=== PATIENT | female | born 1945 | race Caucasian/White ===

== ENCOUNTER 2016-07-28 01:02 | Inpatient (IN) | payer MEDICARE, MEDICAID ==
[2016-07-28 02:00] VITALS: BP 154/63
[2016-07-28] MEDS: Sodium Chloride 0.9% 1,000 ML IV SCH ×2 (02:47→21:49)
[2016-07-28] MEDS: Albuterol Nebulizer 2.5mg/3mL HHN SCH ×4 (03:00→19:42)
[2016-07-28] MEDS ORDERED: Pneumococcal Vaccine 0.5 mL Vial IM ONE (05:33)
[2016-07-28 05:36] LABS: % LYMPHOCYTES 10.6 % (20.0-50.0); % NEUTROPHILS 77.4 % (40.0-80.0); HEMATOCRIT 30.9 % (35.0-45.0); HEMOGLOBIN 10.7 gm/dL (11.7-16.1); MEAN CELL VOLUME 84.1 fl (81-100); MEAN CORPUSCULAR HEMOGLOBIN 29.2 pg (27.0-31.0); MEAN CORPUSCULAR HGB CONC 34.7 pg (28.0-36.0); MEAN PLATELET VOLUME 7.4 fl; NEUTROPHILE ABSOLUTE 7.6 Th/cmm (1.8-8.0); PLATELET COUNT 269 Th/cmm (150-400); RED BLOOD COUNT 3.68 Mil/cmm (3.80-5.20); RED CELL DISTRIBUTION WIDTH 12.4 % (11.5-20.0); WHITE BLOOD COUNT 9.8 Th/cmm (4.8-10.8)
[2016-07-28 06:10] LABS: ALB/GLOB RATIO 0.9 (1.0-1.8); ALKALINE PHOSPHATASE 137 U/L (34-104); ANION GAP 9.6 (7.0-16.0); BILIRUBIN,TOTAL 0.7 mg/dL (0.3-1.0); BUN - UREA NITROGEN 29 mg/dL (7-25); BUN/CREATININE RATIO 32.2; CALCIUM SERUM 8.1 mg/dL (8.6-10.3); CARBON DIOXIDE 28.2 mEq/L (21.0-31.0); CHLORIDE 102 mEq/L (98-107); CREATININE - SERUM 0.9 mg/dL (0.6-1.2); GLUCOSE 191 mg/dL (70-105); SGOT 47 U/L (13-39); SGPT/ALT 58 U/L (7-52); SODIUM SERUM 137 mEq/L (136-145)
[2016-07-28 06:15] LABS: POTASSIUM SERUM 2.8 mEq/L (3.5-5.1)
[2016-07-28] MEDS ORDERED: VITAMIN D3 PO SCH (09:00)
[2016-07-28] MEDS ORDERED: CALCIUM CARBONATE PO SCH (09:00)
[2016-07-28] MEDS ORDERED: [UNRECOGNIZED DRUG - OTHER] PO SCH (09:00)
--- NOTE | 2016-07-28 09:21 | Diagnostic Imaging Report ---
Portable chest x-ray HISTORY: Shortness of breath The heart size appears somewhat generous. No focal pulmonary processes. Atherosclerotic calcification seen in the aorta. IMPRESSION: 1. No acute focal pulmonary processes
[2016-07-28] MEDS: cefTRIAXone 1 GM in Sodium Chloride 0.9% 50 ML IV SCH (09:49)
[2016-07-28] MEDS: Potassium Chloride 40 MEQ, Lidocaine 1% 20mL Vial 25 MG in Sodium Chloride 0.9% 250 ML IV ONE (10:15)
[2016-07-28] MEDS: Promethazine DM 6.25/15mg-5mL 5 ML SYR PO SCH ×4 (12:02→23:41)
--- NOTE | 2016-07-28 15:21 | History & Physical ---
CHIEF COMPLAINT: Shortness of breath. HISTORY OF PRESENT ILLNESS: This is the case of 71-year-old female who went to [facility] ER secondary to cough and fever. She referred that for a few days, she is having fever and cough, reason why she went to Emergency Room for evaluation and treatment. The patient was at the Emergency Room, diagnosis of pneumonia was done and the patient was transferred to this hospital to continue treatment. PAST MEDICAL HISTORY: The patient has past medical history of hypertension, high cholesterol, status post breast cancer. The patient received radiotherapy. SOCIAL HISTORY: The patient lives at home with family. She denies smoking, drinking or use of illegal drugs. PAST SURGICAL HISTORY: The patient had breast surgery 20 years ago. MEDICATIONS: Reviewed. ALLERGIES: No known allergies. REVIEW OF SYSTEMS: LUNGS: The patient referred shortness of breath, cough and fever. HEART: Unremarkable. ABDOMEN: Unremarkable. EXTREMITIES: Unremarkable. PHYSICAL EXAMINATION: GENERAL: Does reveal a fairly nourished and developed female, awake, alert and complaining of chest pain secondary to cough. LUNGS; ____ respiration, bilateral secretions with occasional wheezing. HEART: Regular rhythm. ABDOMEN: Soft, nontender. Bowel sounds present. EXTREMITIES: No edema. NEUROLOGICAL: The patient is awake, alert. Nerves 2-12 grossly intact. IMPRESSION: 1. Pneumonia. 2. Hypertension. 3. Dyslipidemia. 4. Status post breast cancer. PLAN: 1. The patient will be admitted in medical surgical floor. 2. Ceftriaxone IV. 3. treatment. 4. Continue on home medications. 5. Diet, low in sodium. 6. CBC and CMP at a.m. JOB# [id number]
[2016-07-28] MEDS: Budesonide 0.5 Mg/2 mL Ud HHN SCH (19:42)
--- NOTE | 2016-07-28 21:10 | Admit Criteria Form ---
Admit Criteria Forms - Admit Criteria Diagnosis: PNEUMONIA, COMMUNITY ACQUIRED Clinical Indications for Admission to Inpatient Care ( Place 'X' for any and all applicable criteria): Admission is indicated for ANY ONE of the following (1)(2)(3): [ ]I. Hypoxemia indicated by ANY ONE of the following: [ ]a) Oxygen saturation less than 90% while breathing room air [ ]b) PO2 less than 60 mm Hg (8.0 kPa) while breathing room air [ ]c) Chronic lung disease with significant deterioration from baseline oxygenation [ ]II. Appropriate diagnostic testing and treatment unavailable in outpatient or recovery facility (eg,testing or infection control measures unavailable(10) [ ]III. Moderate-risk or high-risk category patients (Pneumonia Severity Index (PSI) class IV or V, or CURB-65 score of 3 or greater). [ ]IV. Outpatient treatment failure as indicated by ANY ONE of the following(9) : [ ]a) Failure to respond to antibiotic (eg, resistant organism) [ ]b) Clinically significant adverse effects from medication (eg, vomiting) [ ]c) Complications of pneumonia (eg, empyema, bacteremia) [ ]d) Significant worsening of comorbid cond necessitating inpatient care (eg, chronic heart failure) [ ]V. Intermediate-risk category patients (eg, PSI class III or CURB-65 score 2) who do not improve with initial therapy and observation. [ ]. Immunocompromised patients (eg, AIDS, chronic steroid use) at moderate or high risk based on clinical evaluation. [ ]VII. Complicated pleural effusions (eg, exudative, loculated) [ ]VIII.Hemodynamic instability [ ] IX. Altered mental status that is severe or persistent. [ ]X. Dehydration that is severe or persistent. [ ]XI. Bacteremia [X]XII. Respiratory finding (eg. tachypnea) that do not respond to outpatient or observation care treatment Extended stay beyond goal length of stay may be needed for (20) [ ]a) Unclear diagnosis [ ]b) Pleural disease [ ]c) Severe pneumonia or treatment failure (25 [ ]d) Respiratory failure (anticipate invasive or noninvasive ventilatory support) [ ]e) Abnormal serum electrolytes (serum Na concentration less than 135 mEq/L (mmol/L) (32)(33) [ ]f) Clinically significant comorbid illness (eg, heart failure, atrial fibrillation with rapid heart rate, alcohol withdrawal, renal insufficiency)(34)(35) [ ]g) Comorbid acute exacerbation of COPD(36) [ ]h) Concomitant diagnosis of malignancy that may be associated with malnutrition, immunologic impairment, or bronchial obstruction. [ ]i) Concomitant altered mental status [ ]j) Culture-identified Gram-negative or antibiotic-resistant organism (eg, Pseudomonas, methicillin-resistant Staphylococcus aureus)(30) [ ]k) Healthcare-associated pneumonia The original [facility] content created by [employer] has been revised. The portions of the content which have been revised are identified through the use of italic text or in bold, and [facility] has neither reviewed nor approved the modified material. All other unmodified content is copyright [facility]. Please see references footnoted in the original [facility] edition 2016 Admit Criteria Met?: Yes
[2016-07-28] MEDS ORDERED: Albuterol Nebulizer 2.5mg/3mL HHN PRN (22:27)
[2016-07-29 00:02] LABS: URINE BILIRUBIN NEGATIVE (NEGATIVE); URINE BLOOD NEGATIVE (NEGATIVE); URINE COLOR YELLOW; URINE GLUCOSE (UA) NEGATIVE (NEGATIVE); URINE KETONE NEGATIVE (NEGATIVE); URINE PROTEIN 30 mg/dL (NEGATIVE); URINE UROBILINOGEN >=8.0 E.U./dL (0.2 - 1.0)
[2016-07-29 00:03] LABS: URINE BACTERIA FEW /hpf (NONE SEEN); URINE EPITHELIAL CELLS OCCASIONAL /lpf (FEW); URINE RBC 0-1 /hpf (0-5)
[2016-07-29] MEDS: Albuterol Nebulizer 2.5mg/3mL HHN SCH ×4 (00:58→19:16)
--- NOTE | 2016-07-29 04:51 | Consultation ---
The patient of Dr. Peck. HISTORY OF PRESENT ILLNESS: This is a 71-year-old female who presents with cough, congestion for 5 days and phlegm production, still some feverish as well. Denies any chills, with some weakness. She presented to [facility] and transferred here for further treatment and management. The patient says she is better. Cough is decreased. She has no more nausea or vomiting. She denies any history of lung problems in the past. Denies any shortness of breath or chest pain. PAST MEDICAL HISTORY: As above. SOCIAL HISTORY: Denies smoking, drinking, or drug use. REVIEW OF SYSTEMS: Per the HPI. PHYSICAL EXAMINATION: GENERAL: Awake, alert, not in acute distress. VITAL SIGNS: Temperature is 100.0, pulse is 93, respirations are 20, blood pressure 150/59 saturation 94% on room air. HEENT: Atraumatic, normocephalic. Pupils are reactive to light and accommodation. Ears, nose and throat normal. NECK: Supple. No JVD. CHEST: There are rhonchi bilaterally. HEART: Regular rate and rhythm. ABDOMEN: Soft. No tenderness. EXTREMITIES: No edema. Chest x-ray, no acute infiltrate. LABORATORY DATA: WBC is 9.8, hemoglobin is 10.7, hematocrit 30.9 and platelets 269. Sodium is 139, potassium is 2.8, BUN is 29, creatinine 0.9. IMPRESSION: 1. Acute bronchitis. 2. Weakness. 3. Bronchospasm. PLAN: 1. IV antibiotics. 2. Nebulizer treatment. 3. Pulmonary toilet. 4. Bronchodilators. 5. Pulmicort. Thank you very much, Dr. Peck, for this consultation, I will follow the patient with you. JOB# [id number] MTDD
[2016-07-29] MEDS: Promethazine DM 6.25/15mg-5mL 5 ML SYR PO SCH ×4 (05:54→23:06)
[2016-07-29 06:03] LABS: % BASOPHILS 0.1 % (0.0-2.0); % EOSINOPHILS 0.3 % (0.0-5.0); % LYMPHOCYTES 13.4 % (20.0-50.0); % MONOCYTES 11.7 % (2.0-10.0); % NEUTROPHILS 74.5 % (40.0-80.0); HEMATOCRIT 31.3 % (35.0-45.0); HEMOGLOBIN 10.7 gm/dL (11.7-16.1); MEAN CELL VOLUME 84.5 fl (81-100); MEAN CORPUSCULAR HEMOGLOBIN 28.9 pg (27.0-31.0); MEAN CORPUSCULAR HGB CONC 34.2 pg (28.0-36.0); MEAN PLATELET VOLUME 7.3 fl; PLATELET COUNT 264 Th/cmm (150-400); RED CELL DISTRIBUTION WIDTH 12.8 % (11.5-20.0); WHITE BLOOD COUNT 10.7 Th/cmm (4.8-10.8)
[2016-07-29 06:23] LABS: ALB/GLOB RATIO 0.9 (1.0-1.8); ALKALINE PHOSPHATASE 158 U/L (34-104); ANION GAP 8.3 (7.0-16.0); BILIRUBIN,TOTAL 0.6 mg/dL (0.3-1.0); BUN - UREA NITROGEN 16 mg/dL (7-25); BUN/CREATININE RATIO 22.9; CALCIUM SERUM 8.5 mg/dL (8.6-10.3); CARBON DIOXIDE 27.5 mEq/L (21.0-31.0); CHLORIDE 105 mEq/L (98-107); CREATININE - SERUM 0.7 mg/dL (0.6-1.2); GLUCOSE 165 mg/dL (70-105); SGOT 33 U/L (13-39); SGPT/ALT 52 U/L (7-52); SODIUM SERUM 138 mEq/L (136-145)
[2016-07-29 06:44] LABS: POTASSIUM SERUM 2.8 mEq/L (3.5-5.1)
[2016-07-29] MEDS ORDERED: Potassium Chloride 40 MEQ, Lidocaine 1% 20mL Vial 25 MG in Sodium Chloride 0.9% 250 ML IV ONE (06:59)
[2016-07-29] MEDS: Budesonide 0.5 Mg/2 mL Ud HHN SCH ×2 (07:14→19:16)
[2016-07-29] MEDS: Potassium Chloride 40 MEQ, Lidocaine 1% 20mL Vial 25 MG in Sodium Chloride 0.9% 250 ML IV ONE (08:15)
--- NOTE | 2016-07-29 09:03 | General Progress Note ---
Subjective - Review of Systems Service Date: 07/29/16 Subjective: I fell better Objective - Results Result Diagrams: 07/29/16 05:20 07/29/16 05:20 Recent Labs: Laboratory Last Values WBC 10.7 Th/cmm (4.8-10.8) 07/29/16 05:20 RBC 3.70 Mil/cmm (3.80-5.20) L 07/29/16 05:20 Hgb 10.7 gm/dL (11.7-16.1) L 07/29/16 05:20 Hct 31.3 % (35.0-45.0) L 07/29/16 05:20 MCV 84.5 fl (81-100) 07/29/16 05:20 MCH 28.9 pg (27.0-31.0) 07/29/16 05:20 MCHC Differential 34.2 pg (28.0-36.0) 07/29/16 05:20 RDW 12.8 % (11.5-20.0) 07/29/16 05:20 Plt Count 264 Th/cmm (150-400) 07/29/16 05:20 MPV 7.3 fl 07/29/16 05:20 Neutrophils % 74.5 % (40.0-80.0) 07/29/16 05:20 Lymphocytes % 13.4 % (20.0-50.0) L 07/29/16 05:20 Monocytes % 11.7 % (2.0-10.0) H 07/29/16 05:20 Eosinophils % 0.3 % (0.0-5.0) 07/29/16 05:20 Basophils % 0.1 % (0.0-2.0) 07/29/16 05:20 Sodium 138 mEq/L (136-145) 07/29/16 05:20 Potassium 2.8 mEq/L (3.5-5.1) L* 07/29/16 05:20 Chloride 105 mEq/L (98-107) 07/29/16 05:20 Carbon Dioxide 27.5 mEq/L (21.0-31.0) 07/29/16 05:20 Anion Gap 8.3 (7.0-16.0) 07/29/16 05:20 BUN 16 mg/dL (7-25) 07/29/16 05:20 Creatinine 0.7 mg/dL (0.6-1.2) 07/29/16 05:20 Est GFR ( Amer) TNP 07/29/16 05:20 Est GFR (Non-Af Amer) TNP 07/29/16 05:20 BUN/Creatinine Ratio 22.9 07/29/16 05:20 Glucose 165 mg/dL (70-105) H 07/29/16 05:20 Hemoglobin A1c % 6.2 % (4.0-6.0) H 07/28/16 05:14 Calcium 8.5 mg/dL (8.6-10.3) L 07/29/16 05:20 Total Bilirubin 0.6 mg/dL (0.3-1.0) 07/29/16 05:20 AST 33 U/L (13-39) 07/29/16 05:20 ALT 52 U/L (7-52) 07/29/16 05:20 Alkaline Phosphatase 158 U/L (34-104) H 07/29/16 05:20 Total Protein 6.4 gm/dL (6.0-8.3) 07/29/16 05:20 Albumin 3.0 gm/dL (3.7-5.3) L 07/29/16 05:20 Globulin 3.4 gm/dL 07/29/16 05:20 Albumin/Globulin Ratio 0.9 (1.0-1.8) L 07/29/16 05:20 Urine Source CATH 07/28/16 23:30 Urine Color YELLOW 07/28/16 23:30 Urine Clarity SLIGHT HAZY (CLEAR) 07/28/16 23:30 Urine pH 7.0 07/28/16 23:30 Ur Specific [place] 1.020 (1.005-1.030) 07/28/16 23:30 Urine Protein 30 mg/dL (NEGATIVE) H 07/28/16 23:30 Urine Glucose (UA) NEGATIVE mg/dL (NEGATIVE) 07/28/16 23:30 Urine Ketones NEGATIVE mg/dL (NEGATIVE) 07/28/16 23:30 Urine Blood NEGATIVE (NEGATIVE) 07/28/16 23:30 Urine Nitrate NEGATIVE (NEGATIVE) 07/28/16 23:30 Urine Bilirubin NEGATIVE (NEGATIVE) 07/28/16 23:30 Urine Urobilinogen >=8.0 E.U./dL (0.2 - 1.0) H 07/28/16 23:30 Ur Leukocyte Esterase TRACE (NEGATIVE) H 07/28/16 23:30 Urine RBC 0-1 /hpf (0-5) 07/28/16 23:30 Urine WBC 10-25 /hpf (0-5) H 07/28/16 23:30 Ur Epithelial Cells OCCASIONAL /lpf (FEW) 07/28/16 23:30 Urine Bacteria FEW /hpf (NONE SEEN) 07/28/16 23:30 Influenza A (Rapid) NEG FOR INF A 07/29/16 05:58 Influenza B (Rapid) NEG FOR INF B 07/29/16 05:58 - Physical Exam Vitals and I&O: Vital Signs Temp 98.4 F 07/29/16 04:00 Pulse 86 07/29/16 04:00 Resp 18 07/29/16 04:00 BP 107/80 07/29/16 04:00 Pulse Ox 94 07/29/16 04:00 Intake & Output 07/28/16 07/29/16 07/29/16 18:59 06:59 18:59 Intake Total 1240 340 Balance 1240 340 Intake: Intake, IV Amount 1000 Sodium Chloride 0.9% 1, 1000 000 ml @ 75 mls/hr IV . [id number] [facility] Rx#:[id number] Oral 240 340 Other: # Voids 2 # Bowel Movements 0 Stool Characteristics Soft Active Medications: Current Medications Acetaminophen (Tylenol) 650 mg PO Q4H PRN PRN Reason: Pain (Mild) Stop: 09/26/16 02:22 Last Admin: 07/28/16 23:40 Dose: 650 mg Albuterol Sulfate (Albuterol 2.5mg/3ml Neb Ud) 2.5 mg HHN Q6HRT [facility] Stop: 09/26/16 02:59 Last Admin: 07/29/16 07:14 Dose: 2.5 mg Albuterol Sulfate (Albuterol 2.5mg/3ml Neb Ud) 2.5 mg HHN Q4H PRN PRN Reason: FOR SHORTNESS OF BREATH Stop: 09/26/16 22:26 Last Admin: 07/28/16 22:49 Dose: 2.5 mg Benazepril HCl (Lotensin) 20 mg PO DAILY [facility] Stop: 09/26/16 08:59 Last Admin: 07/28/16 10:15 Dose: 20 mg Budesonide (Pulmicort) 0.5 mg HHN BIDRT ANASTASIIA Stop: 09/26/16 18:59 Last Admin: 07/29/16 07:14 Dose: 0.5 mg Calcium Carbonate (Calcium Carb) 600 mg PO BID ANASTASIIA Stop: 09/26/16 08:59 Last Admin: 07/28/16 18:28 Dose: 600 mg Hydrochlorothiazide (Hctz) 25 mg PO DAILY ANASTASIIA Stop: 09/27/16 08:59 Sodium Chloride (Nacl 0.9%) 1,000 mls @ 75 mls/hr IV .[id number] ANASTASIIA Stop: 09/26/16 02:29 Last Admin: 07/28/16 21:49 Dose: 75 mls/hr Ceftriaxone Sodium 1 gm/ (Sodium Chloride) 50 mls @ 100 mls/hr IV Q24HR ANASTASIIA Stop: 09/26/16 08:59 Last Admin: 07/28/16 09:49 Dose: 100 mls/hr Potassium Chloride 40 meq/Lidocaine HCl 25 mg/ Sodium Chloride 272.5 mls @ 68 mls/hr IV X1 ONE Stop: 07/29/16 10:59 Metoprolol Tartrate (Lopressor) 100 mg PO DAILY ANASTASIIA Stop: 09/26/16 08:59 Potassium Chloride (Klor-Con) 20 meq PO DAILY ANASTASIIA Stop: 09/27/16 08:59 Promethazine HCl/Dextromethorphan (Phenergan Dm 6.25/15mg-5 Ml) 5 ml PO Q6HR ANASTASIIA Stop: 09/26/16 05:59 Last Admin: 07/29/16 05:54 Dose: 5 ml General: Alert, Oriented x3, No acute distress HEENT: Atraumatic Neck: Supple Lungs: Clear to auscultation Abdomen: Bowel sounds Extremities: Other (Warm and dry) Neurological: Normal gait Skin: Other (Warm and dry) Psych/Mental Status: Mental status NL Assessment/Plan - Assessment Assessment: Patient is awake, calm in no acute distress. Dx: Pneumonia, HTN - Plan Plan: Patient already seen by Pulmonology. In Ceftriaxone, breathing treatment, and home meds. Nutritional Asmnt/Malnutr-PDOC - Dietary Evaluation Malnutrition Findings (Please click <Entered> for more info): Nutritional Asmnt/Malnutrition Start: 07/28/16 14: 17 Text: Status: Active Freq: Document 07/28/16 14:18 GSJOSE (Rec: 07/28/16 14:32 [email or web address]) Nutritional Asmnt/Malnutrition Patient General Information Nutritional Screening Consult Pertinent Medical Hx/Surgical Hx No ER or H&P at this time. Subjective Information [address] consult for BG >180. Visited pt right after breakfast, pt was lethargic and appeared to be in pain, stated she did not eat a lot. UBW 160lb, pt reported she felt like she has lost weight, however did not eleborate, EMR weight 149lb. Pt did not seem to know about her elevated glucose, RD very briefly explained a CCHO diet to aid in glycemic control. RD visit pt again during lunch time, pt was asleep with meal untouched at bedside. 07/28 chest x-ray: no acute focal pulmonary processes. Current Diet Order/ Nutrition Support Regular Pertinent Medications IV Pertinent Labs 07/28: A1c 6.2H, glucose 191H, potassium 2.8L, AST 47H, ALT 58H, alkaline phosphatase 137H Nutritional Hx/Data Height 1.63 m Height (Calculated Centimeters) 162.6 Current Weight (lbs) 67.585 kg Weight (Calculated Kilograms) 67.6 Weight (Calculated Grams) 32259.3 Usual body Weight (lbs) 160 [place] Body Weight 120 Recent Weight Change Yes Weight Status Approriate GI Symptoms Skin Integrity/Comment: Donald 21. Skin intact. Estimated Nutritional Goals BEE in Kcals: Using Current wt Calories/Kcals/Kg CBW 149lb/67.7kg Kcals Calculated 1693-2031kcal (25-30kcal/kg) Protein: Using Current wt Protein Calculated 68g (1g/kg) Fluid: ml 1693-2031ml (1ml/kcal) Nutritional Problem 1. Problem Problem Altered nutrition related laboratory values related to Etiology hyperglycemia aeb Signs/Symptoms: A1c 6.2H, glucose 191, consult for BG > 180 Intervention/Recommendation Comments 1. Recommend [id number] to promote glycemic control. Poor PO intake. 2. Monitor weight closely. Pt stated recent weight loss. Expected Outcomes/Goals Expected Outcomes/Goals 1. Pt to meet at least 75% of estimated nutritional needs.
[2016-07-29] MEDS: Potassium Chloride 20 mEq ER Tab PO SCH (09:56)
[2016-07-29] MEDS: cefTRIAXone 1 GM in Sodium Chloride 0.9% 50 ML IV SCH (09:57)
[2016-07-30] MEDS: Albuterol Nebulizer 2.5mg/3mL HHN SCH ×2 (01:38→07:42)
[2016-07-30 05:21] LABS: ALB/GLOB RATIO 0.9 (1.0-1.8); ALKALINE PHOSPHATASE 176 U/L (34-104); ANION GAP 5.7 (7.0-16.0); BILIRUBIN,TOTAL 0.6 mg/dL (0.3-1.0); BUN - UREA NITROGEN 13 mg/dL (7-25); BUN/CREATININE RATIO 18.6; CALCIUM SERUM 8.8 mg/dL (8.6-10.3); CARBON DIOXIDE 28.6 mEq/L (21.0-31.0); CHLORIDE 105 mEq/L (98-107); CREATININE - SERUM 0.7 mg/dL (0.6-1.2); GLUCOSE 129 mg/dL (70-105); POTASSIUM SERUM 3.3 mEq/L (3.5-5.1); SGOT 36 U/L (13-39); SGPT/ALT 58 U/L (7-52); SODIUM SERUM 136 mEq/L (136-145)
[2016-07-30 05:22] LABS: % BASOPHILS 0.3 % (0.0-2.0); % EOSINOPHILS 0.7 % (0.0-5.0); % LYMPHOCYTES 16.8 % (20.0-50.0); % MONOCYTES 7.7 % (2.0-10.0); % NEUTROPHILS 74.5 % (40.0-80.0); HEMATOCRIT 31.6 % (35.0-45.0); HEMOGLOBIN 10.9 gm/dL (11.7-16.1); MEAN CORPUSCULAR HEMOGLOBIN 29.6 pg (27.0-31.0); MEAN CORPUSCULAR HGB CONC 34.5 pg (28.0-36.0); MEAN PLATELET VOLUME 7.3 fl; NEUTROPHILE ABSOLUTE 7.3 Th/cmm (1.8-8.0); PLATELET COUNT 314 Th/cmm (150-400); RED BLOOD COUNT 3.68 Mil/cmm (3.80-5.20); WHITE BLOOD COUNT 9.8 Th/cmm (4.8-10.8)
[2016-07-30] MEDS: Promethazine DM 6.25/15mg-5mL 5 ML SYR PO SCH ×4 (06:00→23:44)
[2016-07-30] MEDS: Budesonide 0.5 Mg/2 mL Ud HHN SCH ×2 (07:42→18:53)
[2016-07-30] MEDS: cefTRIAXone 1 GM in Sodium Chloride 0.9% 50 ML IV SCH (09:45)
[2016-07-30] MEDS: Sodium Chloride 0.9% 1,000 ML IV SCH ×3 (09:54→09:56)
[2016-07-30] MEDS: Potassium Chloride 20 mEq ER Tab PO SCH (09:54)
[2016-07-30] MEDS: methylPREDNISolone SS 40 mg Vial IV SCH ×2 (14:40→20:36)
[2016-07-30] MEDS: Azithromycin 500 MG in Sodium Chloride 0.9% 250 ML IV SCH (17:41)
[2016-07-30] MEDS: Albuterol/Ipratropium Neb 3 ML AERS HHN SCH (18:53)
[2016-07-31] MEDS: Albuterol/Ipratropium Neb 3 ML AERS HHN SCH ×4 (00:28→19:07)
[2016-07-31] MEDS: Promethazine DM 6.25/15mg-5mL 5 ML SYR PO SCH ×3 (05:47→17:52)
[2016-07-31] MEDS: methylPREDNISolone SS 40 mg Vial IV SCH ×2 (05:49→12:48)
[2016-07-31 07:42] LABS: % EOSINOPHILS 0.2 % (0.0-5.0); % LYMPHOCYTES 12.8 % (20.0-50.0); % MONOCYTES 0.7 % (2.0-10.0); % NEUTROPHILS 86.3 % (40.0-80.0); HEMATOCRIT 33.6 % (35.0-45.0); HEMOGLOBIN 11.3 gm/dL (11.7-16.1); MEAN CELL VOLUME 86.5 fl (81-100); MEAN CORPUSCULAR HEMOGLOBIN 29.2 pg (27.0-31.0); MEAN CORPUSCULAR HGB CONC 33.8 pg (28.0-36.0); MEAN PLATELET VOLUME 7.6 fl; PLATELET COUNT 352 Th/cmm (150-400); RED BLOOD COUNT 3.88 Mil/cmm (3.80-5.20); RED CELL DISTRIBUTION WIDTH 12.9 % (11.5-20.0); WHITE BLOOD COUNT 10.4 Th/cmm (4.8-10.8)
[2016-07-31] MEDS: Budesonide 0.5 Mg/2 mL Ud HHN SCH ×2 (07:48→19:07)
[2016-07-31 08:10] LABS: ALB/GLOB RATIO 0.9 (1.0-1.8); ALKALINE PHOSPHATASE 223 U/L (34-104); ANION GAP 12.6 (7.0-16.0); BILIRUBIN,TOTAL 0.4 mg/dL (0.3-1.0); BUN - UREA NITROGEN 20 mg/dL (7-25); BUN/CREATININE RATIO 28.6; CALCIUM SERUM 9.2 mg/dL (8.6-10.3); CARBON DIOXIDE 23.8 mEq/L (21.0-31.0); CHLORIDE 105 mEq/L (98-107); CREATININE - SERUM 0.7 mg/dL (0.6-1.2); GLUCOSE 222 mg/dL (70-105); POTASSIUM SERUM 3.4 mEq/L (3.5-5.1); SGOT 42 U/L (13-39); SGPT/ALT 72 U/L (7-52); SODIUM SERUM 138 mEq/L (136-145)
[2016-07-31] MEDS: Potassium Chloride 20 mEq ER Tab PO SCH (08:57)
[2016-07-31] MEDS: Azithromycin 500 MG in Sodium Chloride 0.9% 250 ML IV SCH (12:46)
[2016-07-31] MEDS: Sodium Chloride 0.9% 1,000 ML IV SCH (16:13)
[2016-07-31] MEDS: methylPREDNISolone SS 40 mg Vial IVP SCH (20:52)
[2016-08-01] MEDS: Promethazine DM 6.25/15mg-5mL 5 ML SYR PO SCH ×2 (00:13→05:55)
[2016-08-01] MEDS: Albuterol/Ipratropium Neb 3 ML AERS HHN SCH ×3 (00:52→13:45)
[2016-08-01] MEDS: methylPREDNISolone SS 40 mg Vial IVP SCH (06:45)
[2016-08-01] MEDS: Budesonide 0.5 Mg/2 mL Ud HHN SCH (07:13)
[2016-08-01] MEDS: Potassium Chloride 20 mEq ER Tab PO SCH (08:42)
--- NOTE | 2016-08-01 17:17 | Discharge Summary ---
DATE OF DISCHARGE: 08/01/2016 PRINCIPAL DIAGNOSES: 1. Acute respiratory failure. 2. Asthmatic bronchitis with bronchospasm. 3. Hypertension. 4. Degenerative joint disease. 5. Osteoporosis. 6. History of breast cancer. BRIEF STATEMENT FOR THE REASON FOR ADMISSION: A 71-year-old [place] female presented to Emergency Room for evaluation of shortness of breath, cough and congestion. The patient was initially admitted under Dr. Quentin Peck's service. Subsequently, it was noted the patient belongs to [facility] and I was advised to take over the care. Please refer to my dictated medical H and P for further information. HOSPITAL COURSE: The patient was admitted by him to medical floor where the patient was followed by himself and Dr. Macdonald from Pulmonary standpoint. Upon my evaluation, it was noted the patient had a ____ significant bronchospasm. IV steroid was added along with nebulizer treatment. The chest x-ray was unremarkable for any infiltrate or congestion. With the treatment provided by me under nursing executive, the patient started to improve significantly. The next day IV steroids were tapered down and third day, I discharged this patient back to home with prescription of prednisone 20 b.i.d. for 5 days, Zithromax for 5 days along with albuterol inhaler 2 puffs ____ as needed. The patient is advised to see her primary care physician in 1 week. At the time of discharge, all of her meds were reconciliated. JOB# [id number]
== END 2016-08-01 15:15 | DRG 193 ==
LOC: MSI 01:02
PROVIDERS: ADMIT Internal Medicine; ATTEND Internal Medicine
DX: J18.9 Pneumonia, unspecified organism (principal); J96.00 Acute respiratory failure, unspecified whether with hypoxia or hypercapnia; I10 Essential (primary) hypertension; J45.909 Unspecified asthma, uncomplicated; E78.5 Hyperlipidemia, unspecified; M19.90 Unspecified osteoarthritis, unspecified site; M81.0 Age-related osteoporosis without current pathological fracture; Z85.3 Personal history of malignant neoplasm of breast
CPT/HCPCS: 36415-UA; 71010-TC; 80053-TC; 81001-TC; 81003-TC; 83036-90; 85025-TC; 87086-90; 87804-TC; 94760; J0456; J0696; J2001; J2920; J2930; J3480; J7030; J7613; Z7610